=== PATIENT | female | born 1980 | race Caucasian/White ===

== ENCOUNTER 2016-12-18 17:14 | Emergency (ER) | payer MEDICAID ==
[~2016-12-18] VITALS: Wt 95.0 kg
[2016-12-18] MEDS ORDERED: ALBUTEROL 0.083% (NEB) 2.5 MG/3 ML AMP HHN STA (19:21)
[2016-12-18] MEDS ORDERED: predniSONE 20 MG TAB PO ONE (19:30)
[2016-12-18] MEDS ORDERED: IPRATROPIUM (NEB) 0.5 MG/2.5 ML AMP HHN ONE (19:30)
[2016-12-18] MEDS ORDERED: ALBU18HF INHALATION (20:15)
[2016-12-18] MEDS ORDERED: FLUT9.9S NASAL (20:15)
[2016-12-18 20:25] VITALS: PULSE 90
--- NOTE | 2016-12-18 23:02 | ERD ---
ER Documentation Chief Complaint Date/Time DATE: 12/18/16 TIME: 22:55 Chief Complaint SOB 16 WEEKS PREG HPI This patient is a 36-year-old female who is LC1 currently reportedly 16 weeks presenting to the emergency department with complaints of shortness of breath since 3 PM today. Associated symptoms include sore throat and bilateral ear pain. Symptoms are constant and worsening. She only takes medication for allergies but no other medication. She denies fevers, chills, or other symptoms currently. ROS All systems reviewed and are negative except as per history of present illness. Medications Home Meds Active Scripts Fluticasone Propionate (Flonase Allergy Relief) 9.9 Ml [place].susp, 1 SPRAY NASAL DAILY, #1 BOTTLE TO EACH NOSTRIL Prov:BERNARD LINO PA-C 12/18/16 Albuterol Sulfate* (Ventolin HFA*) 18 Gm Hfa.aer.ad, 2 PUFF INHALATION Q4H, #1 INHALER Prov:BERNARD LINO PA-C 12/18/16 PMhx/Soc History of Surgery: No () Hx Alcohol Use: No Hx Substance Use: No Hx Tobacco Use: No Smoking Status: Never smoker Physical Exam Vitals Vital Signs Date Time Temp Pulse Resp B/P Pulse Ox O2 Delivery O2 Flow Rate FiO2 12/18/16 20:25 90 100 Room Air 12/18/16 19:31 71 18 99 21 12/18/16 17:17 98.0 81 18 135/80 99 Physical Exam Const: Nontoxic, well-appearing female in no acute distress. Head: Atraumatic Eyes: Normal Conjunctiva ENT: Normal External Ears, Nose and Mouth. Neck: Full range of motion..~ No meningismus. Resp: Shallow inspiratory effort, but clear lung sounds bilaterally. No wheezing. No rales, rhonchi, or crackles noted. No signs of respiratory distress. 99% on room air. Cardio: Regular rate and rhythm, no murmurs Abd: Gravid abdomen, soft, non tender, non distended. Normal bowel sounds Skin: No petechiae or rashes Back: No midline or flank tenderness Ext: No cyanosis, or edema Neur: Awake and alert Psych: Normal Mood and Affect Results 24 hrs Current Medications Medications (Trade) Dose Ordered Sig/Kehinde Route PRN Reason Start Time Stop Time Status Last Admin Dose Admin Albuterol (Proventil 0.083% (Neb)) 2.5 mg ONCE STAT HHN 12/18/16 19:21 12/18/16 19:23 DC 12/18/16 19:31 Ipratropium [place] (Atrovent 0.02% (Neb)) 0.5 mg ONCE ONCE HHN 12/18/16 19:30 12/18/16 19:31 DC 12/18/16 19:31 Prednisone (Prednisone) 40 mg ONCE ONCE PO 12/18/16 19:30 12/18/16 19:31 DC 12/18/16 19:32 Procedures/MDM 36-year-old female presents to the emergency department with complaints of shortness of breath. She is 16 weeks , but denies all obstetrical complaints. She was given breathing treatment with ipratropium and albuterol in the department as well as p.o. prednisone and is feeling much improved on reevaluation. Symptoms may be due to a asthma exacerbation. Had very low suspicion for pulmonary embolism as the patient's vital signs were stable with a pulse of 81, temp of 98.0F, and 99% on room air. She is feeling much improved after treatment in the department. I do not feel she required further workup here. She was advised to return immediately for any new or worsening symptoms and she demonstrated good understanding of this information. Strict ER return precautions were discussed. Close follow-up with the primary care physician was advised. Suspicion for life-threatening illness at time of discharge. Departure Diagnosis: Primary Impression: Shortness of breath Condition: Fair Patient Instructions: Coping with Shortness of Breath: Controlling Stress Referrals: [facility] () Herb se chapman hecho un examen mdico de control que le indica que no est en candy condicin que requiera tratamiento urgente en el Departamento de Emergencia. Un estudio ms profundo y el tratamiento de luciano condicin pueden esperar sin ningn riesgo hasta que usted sea atendida/o en el consultorio de luciano mdico o candy cl mariela. Es responsabilidad suya arreglar candy leobardo para el seguimiento del ortiz. MANEJO DE CONDICIONES NO URGENTES EN EL FUTURO 1) Si usted tiene un mdico de atencin primaria: Usted debera llamar a luciano mdico de atencin primaria antes de venir al departamento de emergencia. Despus de las horas de consultorio, luciano doctor o luciano asociado/a est disponible por telfono. El mdico o enfermero de russ en el servicio telefnico puede asesorarle por louise medio para atender el problema, o ortiz contrario se puede programar candy leobardo. 2) Si usted no tiene un mdico de atencin primaria: Llame al mdico o clnica de referencia que aparece abajo dangelo las horas de consultorio para hacer candy leobardo para que le vean. CLINICAS: [facility] [phone] [facility] [phone] [facility] [phone] [facility] [phone] [facility] [phone] [facility] [address] [phone] [address] Additional Instructions: No mas mejor en 2-3 partida, regresar. Mas peor en 24 horas, regresear rapidamente. Ir a doctor primario in 5-7 partida. Usar instrucciones cuando mary medicamento. BERNARD LINO PA-C Dec 18, 2016 23:02
== END 2016-12-18 20:25 | disposition home or self-care (01) ==
LOC: FTE 17:14
DX: O99.89 Other specified diseases and conditions complicating pregnancy, childbirth and the puerperium (principal); R06.02 Shortness of breath; Z3A.16 16 weeks gestation of pregnancy
CPT/HCPCS: 94664; J7512; Z7502; Z7610